=== PATIENT | female | born 1950 | race Caucasian/White ===

== ENCOUNTER 2020-06-05 06:13 | Day surgery (SDC) | payer MEDICARE ==
[2020-06-04 14:28] LABS: BASOPHILS % (AUTO) 0.7 % (0-1); CLARITY,URINE SLIGHTLY CLOUDY (Clear); COLOR,URINE YELLOW (Yellow); EOSINOPHILS # (AUTO) 0.2 X10'3 (0-0.9); EOSINOPHILS % (AUTO) 2.9 % (0-6); GLUCOSE, URINE NEGATIVE (Neg); KETONES,URINE NEGATIVE (Neg); LEUKOCYTE ESTERASE ,URINE NEGATIVE (Neg); LYMPHOCYTES # (AUTO) 2.1 X10'3 (1.1-4.8); LYMPHOCYTES % (AUTO) 33.4 % (21-51); MEAN CORPUSCULAR HEMOGLOBIN 30.9 PG (27.0-31.0); MEAN CORPUSCULAR HGB CONC 33.7 g/dL (33.0-36.5); MEAN CORPUSCULAR VOLUME 91.7 FL (78-98); MEAN PLATELET VOLUME 8.6 FL (7.4-10.4); MONOCYTES # (AUTO) 0.5 X10'3 (0-0.9); MONOCYTES % (AUTO) 8.3 % (2-12); NEUTROPHILS # (AUTO) 3.4 X10'3 (1.8-7.7); NEUTROPHILS % (AUTO) 54.7 % (42-75); NITRITES, URINE NEGATIVE (Neg); OCCULT BLOOD,URINE NEGATIVE (Neg); PRE OP HEMATOCRIT 43.2 % (35.0-45.0); PRE OP HEMOGLOBIN 14.6 g/dL (12.0-16.0); PRE OP PLATELET COUNT 212 X10'3 (140-440); PROTEIN,URINE NEGATIVE (Neg); RED BLOOD COUNT 4.71 X10'6 (4.20-5.60); RED CELL DISTRIBUTION WIDTH 13.6 % (11.5-14.5); UROBILINOGEN,URINE 0.2 E.U/dL (0.2-1.0)
[2020-06-04 14:38] LABS: ALBUMIN 3.7 G/DL (3.4-5.0); ALKALINE PHOSPHATASE 95 IU/L (46-116); BLOOD UREA NITROGEN 17 MG/DL (7-18); BUN/CREATININE RATIO 15.6 (6.6-38.0); CHLORIDE 106 MMOL/L (99-107); CREATININE 1.09 MG/DL (0.40-0.90); PRE OP ALT 42 U/L (30-65); PRE OP ANION GAP 6 (8-16); PRE OP AST 22 U/L (10-37); PRE OP BILIRUB, TOTAL 0.3 MG/DL (0.0-1.0); PRE OP GLUCOSE 91 MG/DL (70-104); PRE OP POTASSIUM 4.1 MMOL/L (3.4-5.1); PRE OP SODIUM 141 MMOL/L (135-145); TOTAL CARBON DIOXIDE 29.2 MMOL/L (24-32); TOTAL PROTEIN 7.3 G/DL (6.4-8.2); eGFR 50 ML/MIN
[2020-06-04 14:45] LABS: UA COLLECTION TYPE CLN CATCH MIDSTREAM
[2020-06-04 14:50] LABS: BACTERIA,URINE FEW /HPF (Neg); RBC,URINE 0-2 /HPF (0-2); SQUAMOUS EPITHELIAL CELL,UR FEW /LPF (FEW); TRANSITIONAL EPI CELLS,URINE FEW /HPF; WBC,URINE 0-4 /HPF (0-4)
[2020-06-05] VITALS (9 sets, daily range): BP systolic 137–167; BP diastolic 78–117
[~2020-06-05] VITALS: Ht 152.4 cm; Wt 86.2 kg
[~2020-06-05 06:13] MED LIST: ESCI10TA PO; FURO-150 PO; LOSA25TA96 PO; POTASSIUM PO; PREG50CA PO; [UNRECOGNIZED DRUG - OTHER] PO; ceFAZolin 2gm in dextrose, iso 50 ML IV ONE; famotidine 20mg tablet PO ONE; ringers solution, lacted 1,000 ML IV SCH
[2020-06-05] MEDS ORDERED: ringers solution, lacted 1,000 ML IV SCH (08:09)
[2020-06-05] MEDS ORDERED: ondansetron/PF 4mg/2ml inj IV PRN (08:10)
[2020-06-05] MEDS ORDERED: morphine 4 MG/ML inj SYRINge IV PRN (08:10)
[2020-06-05] MEDS ORDERED: meperidine/PF 25mg/ml syringe IV PRN (08:10)
[2020-06-05] MEDS ORDERED: labetalol 20mg/4ml (5mg/ml) syringe IV PRN (08:10)
[2020-06-05] MEDS ORDERED: morphine 2 MG/ML inj. syringe IV PRN (08:10)
[2020-06-05] MEDS ORDERED: hydrALAZINE 20mg/ml inj. IV PRN (08:10)
[2020-06-05] MEDS ORDERED: HYDROmorphone inj. 0.5 MG/0.5 ML DISP.SYRIN IV PRN ×2 (08:10)
[2020-06-05] MEDS ORDERED: acetaminophen 1,000mg/100ml IV 100 ML IV PRN (08:10)
[2020-06-05] MEDS ORDERED: proCHLORperazine 10 MG/2 ml inj IV PRN (08:10)
[2020-06-05] MEDS ORDERED: BUPIVAcaine/PF 2.5 mg/ml (0.25%) 30ml vial ONE (09:41)
[2020-06-05] MEDS ORDERED: LIDOcaine 1% 30ml preserv. free vial ONE (09:42)
[2020-06-05] MEDS ORDERED: sevoflurane 250ml liquid IH ONE (10:09)
[2020-06-05] MEDS ORDERED: midazolam 2 mg/2 ml injection ONE (10:14)
[2020-06-05] MEDS ORDERED: LIDOcaine 2% (20mg/ml) 5ml vial ONE (10:23)
[2020-06-05] MEDS ORDERED: propofol inj 20 ML IV ONE (10:23)
[2020-06-05] MEDS ORDERED: fentaNYL/PF 50MCG/1 ML 2ML syringe ONE (10:25)
[2020-06-05] MEDS ORDERED: ondansetron/PF 4mg/2ml inj ONE (10:25)
[2020-06-05] MEDS ORDERED: dexamethasone sod phosphate 4mg/ml inj. ONE (10:25)
--- NOTE | 2020-06-05 10:56 | NUR ---
Received from OR via [facility], accompanied by Anesthesiologist DR HERR and report given by Anesthesiologist. PT DROWSY, DENIES PAIN, LEFT GROIN W/SMALL ISLAND CHARISSE CDI. Addendum: 06/05/20 at 1119 by Allison Lagunas RN Amended: Links added.
--- NOTE | 2020-06-05 12:16 | NUR ---
PT UP AND ABLE TO AMBULATE SAFELY, D/C INSTRUCTIONS GIVEN AND GONE OVER W/PT WHO VERBALIZED UNDERSTANDING, PT D/CD TO HOME VIA W/C TO PRIVATE VEHICLE W/O INCIDENT. Addendum: 06/05/20 at 1226 by Allison Lagunas RN Amended: Links added.
== END 2020-06-05 12:16 | disposition home or self-care (01) ==
LOC: PAS 06:13
PROVIDERS: ATTEND Surgery
DX: R59.0 Localized enlarged lymph nodes (principal); I89.8 Other specified noninfective disorders of lymphatic vessels and lymph nodes; I10 Essential (primary) hypertension; F17.210 Nicotine dependence, cigarettes, uncomplicated; J44.9 Chronic obstructive pulmonary disease, unspecified; E66.9 Obesity, unspecified; Z68.37 Body mass index [BMI] 37.0-37.9, adult; Z98.890 Other specified postprocedural states; Z79.899 Other long term (current) drug therapy; Z72.89 Other problems related to lifestyle; Z90.710 Acquired absence of both cervix and uterus; Z82.49 Family history of ischemic heart disease and other diseases of the circulatory system
CPT/HCPCS: 36415; 38531; 71046; 80053; 81001; 82948; 85025; 88184; 88185; 93005; J0360; J1100; J2001; J2250; J2405; J2704; J3010; J3490; A4215; A4618; A6258; A7000; J7120